=== PATIENT | male | born 1940 | race African-American/Black ===

== ENCOUNTER 2019-01-29 12:03 | Day surgery (SDC) | payer OTHER ==
[2019-01-29 12:49] VITALS: BMI 29.0
[2019-01-29] MEDS ORDERED: oxyCODONE HCL 5 MG TABLET PO PRN (13:17)
[2019-01-29] MEDS ORDERED: ONDANSETRON 4 MG/2 ML VIAL IVPUSH PRN (13:17)
[2019-01-29] MEDS ORDERED: PROPOFOL 20 ML ONE ×3 (13:28)
[2019-01-29] MEDS ORDERED: SODIUM CHLORIDE 1,000 ML IV SCH (13:30)
[2019-01-29] MEDS ORDERED: LIDOCAINE HCL 1%, 10 MG/ML (20ML VIAL) ONE ×2 (14:03→14:29)
[2019-01-29] MEDS ORDERED: HEPARIN NA (PORCINE) 5,000 UNITS/ML 1ML VIAL ONE (14:03)
[2019-01-29 14:11] LABS: POTASSIUM 4.4 mmol/L (3.5-5.1)
[2019-01-29] MEDS ORDERED: MIDAZOLAM HCL 2 MG/2 ML SINGLE DOSE VIAL ONE (14:12)
[2019-01-29] MEDS ORDERED: ceFAZolin SODIUM 1 GM VIAL IVPB ONE (14:18)
[2019-01-29] MEDS ORDERED: LIDOCAINE HCL/PF 2% SDV 5ML VIAL ONE (14:20)
[2019-01-29] MEDS ORDERED: LIDOCAINE HCL 1%, 10 MG/ML (20ML VIAL) INF ONE ×2 (15:10)
[2019-01-29] MEDS ORDERED: DEXTROSE 50%-WATER - 25 GM/50 ML VIAL IVPUSH ONE (15:50)
[2019-01-29] MEDS ORDERED: DEXTROSE 50%-WATER 25 GM/50 ML DISP.SYRIN ONE (15:51)
[2019-01-29] MEDS ORDERED: oxyCODONE HCL 5 MG TABLET ONE (17:00)
[2019-01-29 18:05] VITALS: BP 133/80; PULSE 88; TEMP 97.6
--- NOTE | 2019-01-29 22:14 | OP ---
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 POSTOPERATIVE DIAGNOSES: Renal failure with a thrombosed arteriovenous fistula, left upper arm. PROCEDURE: Placement of arteriovenous graft in the left upper arm between the brachial artery and the axillary vein. SURGEON: Phylicia Olvera MD ANESTHESIA: Local with sedation. The patient was brought into the operating room, left arm was prepped and draped in the usual manner. Intravenous antibiotic given. Local using Marcaine was injected. The brachial artery was isolated below the previous anastomosis and the axillary vein was also isolated at the angulation between the brachial vein and the axillary vein and it was found to be thrombosed. The thrombectomy was done with a 5-Faroese Justin catheter and the brachial artery was opened and the subcutaneous sheath tunnel was created and a 4.7-mm tapered graft was used, Upton-Hunter. The smaller end was anastomosed to the brachial artery and divided into the axillary vein and the flow was established and the patient had a good thrill. Subcutaneous tissue and skin were closed and the patient went to the recovery room in stable condition. Martha [id number]
== END 2019-01-29 18:05 | disposition home or self-care (01) ==
LOC: JASU-SURG 12:03
PROVIDERS: ATTEND Surgery Vascular Surgery
PROC: 03C83ZZ Extirpation of Matter from Left Brachial Artery, Percutaneous Approach (ICD-10-PCS; principal; 2019-01-29 13:00)
DX: T82.868A Thrombosis due to vascular prosthetic devices, implants and grafts, initial encounter (principal); I12.0 Hypertensive chronic kidney disease with stage 5 chronic kidney disease or end stage renal disease; E11.22 Type 2 diabetes mellitus with diabetic chronic kidney disease; N18.6 End stage renal disease; Z99.2 Dependence on renal dialysis; Z79.4 Long term (current) use of insulin
CPT/HCPCS: 36415; 82947; 82962; 84132; 94760; J1644